=== PATIENT | male | born 1990 | race African-American/Black ===

== ENCOUNTER 2019-11-16 18:27 | Observation (INO) | payer OTHER, SELFPAY ==
--- NOTE | ~2019-11-16 | CT_ITS ---
EXAMINATION: CT abd pelvis lumbar w con EXAM DATE: 11/16/2019 21:41 INDICATION: Back pain, fever. TECHNIQUE: Spiral CT of the abdomen and pelvis and lumbar spine was performed following intravenous i njection of 100 mL Omnipaque 350. Axial, coronal and sagittal images were reviewed. The dose-length product (DLP) for this examination was 1724.90 mGy-cm. The exposure was tailored according to patie nt size (auto mA exposure control), and iterative reconstruction (ASIR) was used as additional dose r eduction technique. There is no prior study for comparison. FINDINGS: The liver, spleen, adrenal glands and pancreas are unremarkable. Gallbladder is unremarkab le. No biliary obstruction. Portal and splenic veins are patent. Kidneys enhance symmetrically. T here is no hydronephrosis. The prostate is unremarkable. The bladder is unremarkable. There is no retroperitoneal or pelvic lymphadenopathy. The appendix is normal. The stomach and small bowel are unremarkable. There is colonic fluid, corre late for diarrhea. No free intraperitoneal gas. The heart is normal in size. There are no perica rdial or pleural effusions. The lung bases are unremarkable. No thoracolumbar endplate erosive change. No more than mild thoracolumbar spondylosis. There are no a cute fractures identified. The vertebral bodies are aligned in the AP dimension. Paraspinal soft tiss ue is unremarkable. IMPRESSION: 1. Colonic fluid, diarrhea. 2. Mild thoracolumbar spondylosis. Reviewed, dictated and finalized at location A.
--- NOTE | ~2019-11-16 | XR_ITS ---
EXAMINATION: XR chest 1V portable EXAM DATE: 11/16/2019 19:46 INDICATION: Chills, low back pain. Mouth taste like metal. TECHNIQUE: Portable AP frontal chest x-ray was obtained. Comparison is made to prior examination from 04/16/2019. FINDINGS: The lungs are clear. There are no pleural effusions. Cardiac silhouette is prominent but magnified on this AP technique. There is no pneumothorax suspected. The bones and soft tissues are unremarkable. IMPRESSION: No acute cardiopulmonary findings. Reviewed, dictated and finalized at location A.
[2019-11-16 18:33] VITALS: BP 144/94; PULSE 106; RESP 18; TEMP 37.7; O2SAT 99
[2019-11-16 18:41] VITALS: BP 153/99; PULSE 100; RESP 20; O2SAT 97
[2019-11-16 18:42] VITALS: PULSE 99
--- NOTE | 2019-11-16 19:29 | ED.GENADULT ---
HPI - General Adult General Chief complaint: Unspecified Stated complaint: multiple complaints/aches/lindsey/chills/lbp/diarrhea Time Seen by Provider: 11/16/19 18:42 Source: patient Mode of arrival: ambulatory Limitations: no limitations History of Present Illness HPI narrative: This patient is a 29 year old male who presents for evaluation of multiple complaints. He states 24 hours ago he developed diarrhea, chills, body aches, sore throat. He has been taking day quil without relief. He denies fever, nausea, vomiting, chest pain, cough or sob. He does complain of lower back pain but denies urinary symptoms. He also denies any sick contacts. Related Data Home Medications Medication Instructions Recorded Confirmed No Home Medications 11/16/19 11/16/19 Allergies Allergy/AdvReac Type Severity Reaction Status Date / Time No Known Allergies Allergy Verified 11/16/19 18:38 Review of Systems Review of Systems: All systems reviewed & are unremarkable except as noted in HPI and below Constitutional: Constitutional: Reports chills and Denies fever(s) ENT: Reports sore throat Cardiovascular: Cardiovascular: Denies chest pain Respiratory: Respiratory: Denies cough and Denies dyspnea Gastrointestinal: Gastrointestinal: Denies abdominal pain, Reports diarrhea, Denies nausea and Denies vomiting Genitourinary: Genitourinary: Denies hematuria, Denies genital lesions, Denies penile discharge, Denies urinary frequency and Denies urinary incontinence Musculoskeletal: Musculoskeletal: Reports back pain and Reports myalgias Neurologic: Reports headache(s) PMFSH Past Medical History Medical History (Updated 11/16/19 @ 22:33 by Kalyn Sharma MD) History of obesity Surgical History Surgical History (Updated 11/16/19 @ 19:33 by Kalyn Sharma MD) H/O inguinal hernia repair History of tonsillectomy and adenoidectomy Social History Social History (Updated 04/16/19 @ 20:05 by Rafaela Miller PA-C) Smoking status: Current every day smoker Gender identity (if verbalized by the patient): Male Exam Const: General: no acute distress and alert Orientation/consciousness: patient oriented x3 Limitations: other limitations (obese) HENMT: Head: normocephalic and atraumatic Ears: TM's normal bilaterally Face and sinus: face symmetric Mouth: Yes tongue normal and Yes moist mucous membranes Throat: uvula midline and posterior oropharynx abnormal erythema Eyes: Pupils: Equal, round and reactive pupils present EOM: EOMs intact bilaterally Resp: Effort & Inspection: normal respiratory effort and no retractions Auscultation: clear to auscultation bilaterally Cardio: Rate: regular rate Rhythm: regular rhythm Heart sounds: no murmurs GI: GI Palp: Yes Soft to palpation, No Tenderness to palpation present (GI), No Guarding due to palpation present (GI), No Rigid due to palpation and No Hernia present Back/Spine/Pelvis: Back: no CVA tenderness Skin: General skin exam: normal color Rashes: no rashes Neuro: General: patient oriented x3 and moves all extremities Course Reevaluation(s) Reevaluation #1: PAtient states he feels better. He still has metal taste in his mouth, lower back pain and headache. I think is most likely has COVID but will treat for UTI given UTI. He agrees to admission due to elevated wbc of almost 20K Date: 11/16/19 Time: 22:30 Consultations Consultation #1: I Discussed case with Dr. Ramon who accepts patient for admission after review of case and labs. Date: 11/16/19 Time: 22:31 Vital Signs Vital signs: Vital Signs Temperature 99.8 F H 11/16/19 18:33 Pulse Rate 106 H 11/16/19 18:33 Respiratory Rate 18 11/16/19 18:33 Blood Pressure 144/94 H 11/16/19 18:33 Pulse Oximetry 99 11/16/19 18:33 Temperature 99.8 F H 11/16/19 18:33 Pulse Rate 78 11/16/19 22:44 Respiratory Rate 20 11/16/19 22:44 Blood Pressure 124/63 11/16/19 22:44 Pulse Oximetr
[2019-11-16] MEDS: KETOROLAC 30 MG/ML VIAL (*BKC) IV PUSH (19:31)
[2019-11-16] MEDS: LACTATED RINGERS 1,000 ML 999 ML IV CONT ×2 (19:35→22:39)
[2019-11-16 19:36] VITALS: BP 163/122; PULSE 94; RESP 20; O2SAT 100
[2019-11-16 19:49] LABS: Basophils Absolute Auto 0.1 K/mm3 (0.0-0.1); Basophils Percent Auto 0.4 % (0.2-1.2); Hematocrit 51.9 % (42.0-52.0); Hemoglobin 17.8 g/dL (14.0-18.0); Immature Granulocyte Absolute 0.15 K/mm3 (0.00-0.031); Immature Granulocyte Percent A 0.8 % (0-0.5); Lymphocytes Absolute Auto 1.89 K/mm3 (0.9-3.2); Lymphocytes Percent Auto 9.6 % (18.3-44.2); Mean Corpuscular HGB Conc 34.3 g/dl (32-36); Mean Corpuscular Volume 87.4 fl (80-100); Monocytes Absolute Auto 1.9 K/mm3 (0.1-0.6); Monocytes Percent Auto 9.7 % (2.6-8.5); Neutrophils Absolute Auto 15.7 K/mm3 (1.3-6.7); Neutrophils Percent Auto 79.5 % (45.5-73.1); Platelet Count Result 233 k/mm3 (150-375); Red Blood Count 5.94 M/mm3 (4.6-6.20); Red Cell Distribution Width 13.2 % (11.5-14.5); White Blood Count 19.7 K/mm3 (4.5-10.0)
--- NOTE | 2019-11-16 19:54 | PC.NURSE ---
PT STATES THAT HE IS UNABLE TO GIVE A URINE SAMPLE AT THIS TIME. RN NOTIFIED.
[2019-11-16 20:04] LABS: Alanine Aminotransferase 28 U/L (4-50); Albumin Level 4.5 g/dL (3.5-5.1); Alkaline Phosphatase 69 U/L (38-126); Anion Gap 10 mmol/L (8-16); Aspartate Amino Transferase 22 U/L (17-59); Bilirubin,Total 0.9 mg/dL (0.2-1.3); Blood Urea Nitrogen 13 mg/dL (9-20); Calcium 9.2 mg/dL (8.4-10.2); Carbon Dioxide 21 mmol/L (22-30); Chloride 105 mmol/L (98-107); Estimated CRCL calculation 127 ml/min; Estimated Glomerular Filt Rate > 60; Glucose 105 mg/dL (75-110); Potassium 3.7 mmol/L (3.4-5.0); Sodium 136 mmol/L (137-145)
[2019-11-16 20:18] LABS: Monoscreen Negative (Negative); Negative Monotest Control Negative (Negative); Positive Monotest Control Positive (Positive)
[2019-11-16 20:22] LABS: CRP 17.3 mg/dL (<1.0)
[2019-11-16 21:05] LABS: Add Urine Microscopic? YES; Appearance Urine Cloudy (Clear); Bacteria Urine Trace /hpf; Bilirubin Urine Negative (Negative); Color Urine Amber (Yellow); Glucose Urine UA Negative (Negative); Ketones Urine 1+ mg/dL (Negative); Leukocyte Esterase Ur 1+ LEU/UL (Negative); Mucus Urine Heavy /lpf; Nitrate Urine Negative (Negative); Protein Urine 2+ mg/dL (Negative); Squamous Epithelial Cell Urine Occasional /hpf (Few); WBC Urine 21-30 /hpf
[2019-11-16 21:19] LABS: Blood Urine Negative (Negative); Specific Grav Ur 1.033 (1.001-1.035)
[2019-11-16 22:05] VITALS: BP 110/59; PULSE 81; RESP 20; O2SAT 100
[2019-11-16] MEDS: oxyCODONE/ACETAMINOPHEN 5-325 MG TABLET 1 TABLET PO (22:11)
[2019-11-16] MEDS: METOCLOPRAMIDE HCL INJ 10 MG/2 ML VIAL IV PUSH (22:39)
[2019-11-16] MEDS: diphenhydrAMINE HCl INJ 50 MG/ML VIAL 25 MG IV PUSH (22:39)
[2019-11-16 22:44] VITALS: BP 124/63; PULSE 78; RESP 20; O2SAT 99
[2019-11-16 22:57] LABS: Lactic Acid Reflex 1.2 mmol/L (0.7-2.1)
[2019-11-17 00:40] VITALS: BP 107/63; PULSE 63; RESP 18; O2SAT 100
[2019-11-17 00:55] VITALS: BP 121/75; PULSE 72; RESP 20; TEMP 36.9; O2SAT 97; BMI 35.6
--- NOTE | 2019-11-17 01:03 | ADMGEN ---
This patient, Licha Valle, was admitted to [facility] Surg Room 327-01. Patient/family oriented to hospital policies and general routines including ID bracelet, bed and alarms, visiting hours, pain management, procedures, bathroom and other care routines, personal items, smoking policy, room service/diet, and visiting hours. Valuables list has been completed. Information on how to activate the Rapid Response Team has been discussed. Patient/Family are encouraged to report perceived risks to care and to ask questions if they do not understand what they are told or what they should do.
[2019-11-17 04:00] VITALS: BP 110/70; PULSE 80; RESP 20; TEMP 36.8; O2SAT 100
[2019-11-17 06:19] LABS: Basophils Absolute Auto 0.1 K/mm3 (0.0-0.1); Basophils Percent Auto 0.4 % (0.2-1.2); Eosinophils Percent Auto 0.1 % (0-4.4); Hematocrit 50.9 % (42.0-52.0); Hemoglobin 17.1 g/dL (14.0-18.0); Immature Granulocyte Percent A 0.6 % (0-0.5); Lymphocytes Absolute Auto 1.58 K/mm3 (0.9-3.2); Lymphocytes Percent Auto 9.4 % (18.3-44.2); Mean Corpuscular HGB Conc 33.6 g/dl (32-36); Mean Corpuscular Hemoglobin 29.8 pg (26-34); Mean Corpuscular Volume 88.8 fl (80-100); Monocytes Absolute Auto 1.4 K/mm3 (0.1-0.6); Monocytes Percent Auto 8.3 % (2.6-8.5); Neutrophils Absolute Auto 13.6 K/mm3 (1.3-6.7); Neutrophils Percent Auto 81.2 % (45.5-73.1); Platelet Count Result 204 k/mm3 (150-375); Red Blood Count 5.73 M/mm3 (4.6-6.20); Red Cell Distribution Width 13.3 % (11.5-14.5); White Blood Count 16.7 K/mm3 (4.5-10.0)
[2019-11-17 06:31] LABS: Alanine Aminotransferase 30 U/L (4-50); Alkaline Phosphatase 59 U/L (38-126); Anion Gap 8 mmol/L (8-16); Aspartate Amino Transferase 29 U/L (17-59); Bilirubin,Total 0.5 mg/dL (0.2-1.3); Blood Urea Nitrogen 13 mg/dL (9-20); Calcium 8.7 mg/dL (8.4-10.2); Carbon Dioxide 25 mmol/L (22-30); Chloride 103 mmol/L (98-107); Estimated CRCL calculation 128 ml/min; Estimated Glomerular Filt Rate > 60; Glucose 108 mg/dL (75-110); Potassium 3.5 mmol/L (3.4-5.0); Sodium 136 mmol/L (137-145)
[2019-11-17 08:00] VITALS: BP 126/75; PULSE 76; RESP 20; TEMP 37.4; O2SAT 97
[2019-11-17] MEDS: KETOROLAC 30 MG/ML VIAL (*BKC) IV PUSH ×2 (08:44→23:12)
[2019-11-17] MEDS: SODIUM CHLORIDE 0.9% IV 1,000 ML 125 ML IV CONT (08:44)
[2019-11-17] MEDS: POTASSIUM CHLORIDE 20 MEQ TABLET 40 MEQ PO (11:33)
[2019-11-17 14:00] VITALS: BP 123/64; PULSE 63; RESP 18; TEMP 36.8; O2SAT 100
[2019-11-17 14:11] LABS: SARS-CoV-2 RNA PCR Negative
--- NOTE | 2019-11-17 14:43 | PM.IMHP ---
H&P: HPI History of Present Illness Date/Time: date of visit 11/17/19 14:45. Chief complaint: sepsis, UTI, PUI Covid Narrative: Date of visit 11/16 9813 Licha Valle is a 29 year old male who presented to the emergency room with approximately 1-2 days history of malaise, headache, chills, myalgia, and low-grade fever. He had pain across his lower back with aching sensation but no urinary symptoms. He denied any cough for shortness of breath. He did has some loose stools with no abdominal discomfort or melena or hematochezia. In the emergency room he is found to have leukocytosis with pyuria and was given a dose of ceftriaxone and admitted for hydration and observation. COVID swab was taken have returned negative today Review of Systems Review of Systems: Narrative: constitutional appetite good weight is stable Eye no double vision or scotoma mouth had some pharyngitis which is better today pulmonary as above no shortness breath wheezing or cough CV no chest pain or palpitation GI as per present illness no dysuria or hematuria just the pyuria on laboratory findings extremities no edema or joint discomfort neuro has had some paresthesias in his right hand especially at night or after repetitive gripping integument no rashes or open wounds PMFSH Past Medical History Medical History (Updated 11/17/19 @ 15:20 by German Segura MD) History of obesity Surgical History Surgical History (Updated 11/16/19 @ 19:33 by Kalyn Sharma MD) H/O inguinal hernia repair History of tonsillectomy and adenoidectomy Family History Family History (Updated 11/17/19 @ 15:09 by German Segura MD) Mother Diabetes mellitus Hypertension Father Hypertension Social History Social History (Updated 11/17/19 @ 15:10 by German Segura MD) Social History: 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 Smoking status: Former smoker Smoking end date: 10/20/19 Alcohol intake: former Substance use: current Substance use type: marijuana Gender identity (if verbalized by the patient): Male Spiritual care concerns: No Meds Home Medications and Allergies Home Medications Medication Instructions Recorded Confirmed Type No Home Medications 11/16/19 11/17/19 History Allergies Allergy/AdvReac Type Severity Reaction Status Date / Time No Known Allergies Allergy Verified 11/16/19 18:38 Vital Signs Vital Signs - 24 hr 11/16/19 18:33 11/16/19 18:41 11/16/19 18:42 Temperature 37.7 C H Pulse Rate 106 H 100 99 Respiratory Rate 18 20 Blood Pressure 144/94 H 153/99 H Pulse Oximetry 99 97 11/16/19 19:36 11/16/19 22:05 11/16/19 22:44 Temperature Pulse Rate 94 81 78 Respiratory Rate 20 20 20 Blood Pressure 163/122 H 110/59 L 124/63 Pulse Oximetry 100 100 99 11/17/19 00:40 11/17/19 00:55 11/17/19 04:00 Temperature 36.9 C 36.8 C Pulse Rate 63 72 80 Respiratory Rate 18 20 20 Blood Pressure 107/63 121/75 110/70 Pulse Oximetry 100 97 100 11/17/19 08:00 Temperature 37.4 C Pulse Rate 76 Respiratory Rate 20 Blood Pressure 126/75 Pulse Oximetry 97 Exam Narrative: Exam Narrative: blood pressure 126/74 pulse is 76 temp 37.4? saturating 97% on room air pupils equal reactive to light sclera anicteric mouth normal neck supple no adenopathy thyromegaly carotid bruits lungs clear CV no murmurs gallops rubs or clicks abdomen is soft nontender no masses obese extremities without edema good distal pulses neuro alert pleasant cooperative no focal deficits integument no skin breakdown or rashes psych affect appropriate pleasant H&P: Results Labs Labs: Short CBC 11/16/19 11/17/19 Range/Units 19:36 05:51 WBC 19.7 H 16.7 H (4.5-10.0) K/mm3 Hgb 17.8 17.1 (14.0-18.0) g/dL Hct 51.9 50.9 (42.0-52.0) % Plt Count 23
[2019-11-17 22:00] VITALS: BP 127/75; PULSE 81; RESP 18; TEMP 36.5; O2SAT 100
[2019-11-18 06:00] VITALS: BP 132/99; PULSE 73; RESP 18; TEMP 36.3; O2SAT 100
[2019-11-18 06:18] LABS: Basophils Absolute Auto 0.1 K/mm3 (0.0-0.1); Basophils Percent Auto 0.5 % (0.2-1.2); Eosinophils Absolute Auto 0.1 K/mm3 (0-0.3); Eosinophils Percent Auto 0.9 % (0-4.4); Hematocrit 47.6 % (42.0-52.0); Hemoglobin 16.2 g/dL (14.0-18.0); Immature Granulocyte Absolute 0.04 K/mm3 (0.00-0.031); Immature Granulocyte Percent A 0.4 % (0-0.5); Lymphocytes Absolute Auto 2.82 K/mm3 (0.9-3.2); Lymphocytes Percent Auto 25.6 % (18.3-44.2); Mean Corpuscular Hemoglobin 29.7 pg (26-34); Mean Corpuscular Volume 87.2 fl (80-100); Monocytes Absolute Auto 1.4 K/mm3 (0.1-0.6); Monocytes Percent Auto 12.4 % (2.6-8.5); Neutrophils Absolute Auto 6.6 K/mm3 (1.3-6.7); Neutrophils Percent Auto 60.2 % (45.5-73.1); Platelet Count Result 212 k/mm3 (150-375); Red Blood Count 5.46 M/mm3 (4.6-6.20); Red Cell Distribution Width 13.2 % (11.5-14.5)
[2019-11-18 06:30] LABS: Anion Gap 6 mmol/L (8-16); Blood Urea Nitrogen 11 mg/dL (9-20); Calcium 8.4 mg/dL (8.4-10.2); Carbon Dioxide 25 mmol/L (22-30); Chloride 106 mmol/L (98-107); Estimated CRCL calculation 140 ml/min; Estimated Glomerular Filt Rate > 60; Glucose 106 mg/dL (75-110); Potassium 3.6 mmol/L (3.4-5.0); Sodium 137 mmol/L (137-145)
--- NOTE | 2019-11-23 12:44 | P.DS_ITS ---
DS: Admitting Diagnosis Admitting Diagnosis Admitting Diagnosis: sepsis, UTI, PUI Covid DS: Discharge Diagnosis Discharge Diagnosis (1) Sepsis: Code(s): A41.9 - Sepsis, unspecified organism Status: Acute Assessment and Plan: sepsis versus SIRS . with pyuria suspected pyelonephritis as etiology cultures showed multiple organisms and low colony count. With hydration and 3 days of IV ceftriaxone WBC to 11,000. he had no further symptomatology fever nausea or achiness Or diarrhea. Up in about taken normal diet without any complaints at discharge. (2) Acute UTI: Code(s): N39.0 - Urinary tract infection, site not specified Status: Acute Assessment and Plan: probable upper tract infection with no other lower tract symptomatology. as above culture grew no specific pathogens and received 3 days of IV ceftriaxone. With no symptomatology and cultures as they were no antibiotics prescribed on discharge (3) Diarrhea: Code(s): R19.7 - Diarrhea, unspecified Status: Acute Assessment and Plan: most likely enteritis or viral syndrome. symptoms subsided by discharge DS: Summary Hospital Course Hospital Course: 29-year-old male admitted with fever malaise nausea diarrhea. Had pyuria and placed on IV ceftriaxone. Cultures of urine grew only low colony count of multiple organisms and received 3 days of IV ceftriaxone. Diarrhea subsided and taking and normal diet without any fever symptoms at discharge. COVID test was negative discharge home to return to work in 1 week Time Spent with Patient Time attestation: Total time spent providing and/or coordinating discharge services: 35 minutes Exam Narrative: Exam Narrative: condition on discharge blood pressure 132/90 pulse 72 saturating 100% room air afebrile lungs clear CV regular rate rhythm no murmurs abdomen soft nontender extremities without edema up in about taken a regular diet without any complaints Discharge Plan Discharge Attending physician on discharge: German Segura Consulting providers: Viktor Michael ; Varun Ley Discharging Clinician: German Segura Patient Disposition: Home, Self-Care Activity: as tolerated Diet: regular Patient Instructions: Antibiotic Form, Pain Management (DC) Stand Alone Forms: General Discharge Information, Work/School Release IP Follow-up/Referrals: Viktor Michael MD [Physician] - 3 Weeks Discharge Medications: Continued No Home Medications RF: 0 Date of admission: 11/16/19 23:05 Primary Care Provider: PHYSICIAN,[employer] Admitting Provider: Jennifer Ramon Discharge Date/Time: 11/18/19 12:20 Attending physician on admission: German Segura Condition: Stable
== END 2019-11-18 12:20 | disposition home or self-care (01) ==
LOC: ANHED 23:10 → ANH3MEDSUR 11-17 11:48
PROVIDERS: Admitting Provider Internal Medicine; Emergency Provider General Practice; Visit Provider Internal Medicine
DX: A41.9 Sepsis, unspecified organism (principal); Z20.828 Contact with and (suspected) exposure to other viral communicable diseases; N39.0 Urinary tract infection, site not specified; R19.7 Diarrhea, unspecified; Z87.891 Personal history of nicotine dependence; E66.9 Obesity, unspecified; Z68.35 Body mass index [BMI] 35.0-35.9, adult
CPT/HCPCS: 36415; 71045; 72132; 74177; 80048; 80053; 81001; 83605; 85025; 86140; 86308; 87040; 87081; 87086; 87088; 87635; 87880; 96361; 96365; 96374; 96375; 96376; 99285; A9270; C9803; G0378; G0379; J0131; J0696; J1200; J1885; J2765; J7030; J7120; Q9967; U0003